=== PATIENT | female | born 1990 | race Caucasian/White ===

== ENCOUNTER → 2017-03-10 | Outpatient (REF) | payer OTHER, MEDICAID | LOC: M LAB REF 17:18 | PROVIDERS: ATTEND Surgery | DX: D23.71 Other benign neoplasm of skin of right lower limb, including hip (principal) ==

== ENCOUNTER → 2017-06-29 | Outpatient (CLI) | payer OTHER ==
--- NOTE | 2017-06-29 15:01 | REP ---
Clinical: Trauma. Crush injury. Technique: AP, lateral, bilateral oblique views left foot. Findings: The osseous structures and joint spaces are intact and normal. There is no evidence for acute fracture or dislocation. Surrounding soft tissues are unremarkable. No subcutaneous emphysema or radiodense foreign body. Impression: No acute fracture or dislocation. Signed by Devan Rivera MD 06/29/2017 02:53 P
== END ==
LOC: M WUC 14:11
PROVIDERS: ATTEND Physician Assistant
DX: S97.82XA Crushing injury of left foot, initial encounter (principal); X58.XXXA Exposure to other specified factors, initial encounter; Y93.9 Activity, unspecified; Y92.9 Unspecified place or not applicable; Y99.8 Other external cause status

== ENCOUNTER 2017-11-03 15:30 | Emergency (ER) | payer OTHER | END 2017-11-03 19:02 | disposition home or self-care (01) | LOC: M ED 15:30 | DX: F07.81 Postconcussional syndrome (principal); S00.83XA Contusion of other part of head, initial encounter; W01.190A Fall on same level from slipping, tripping and stumbling with subsequent striking against furniture, initial encounter; Y92.018 Other place in single-family (private) house as the place of occurrence of the external cause; Z88.2 Allergy status to sulfonamides | CPT/HCPCS: 70450 ==

== ENCOUNTER → 2017-11-19 | Outpatient (REF) | payer OTHER ==
[2017-11-19 22:30] LABS: INFLUENZA A AMPLIFICATION NEGATIVE (NEGATIVE); INFLUENZA B AMPLIFICATION NEGATIVE (NEGATIVE); RSV AMPLIFICATION NEGATIVE (NEGATIVE)
== END ==
LOC: M LAB REF 11:24
DX: J11.1 Influenza due to unidentified influenza virus with other respiratory manifestations (principal)
CPT/HCPCS: 87631

== ENCOUNTER 2019-04-04 22:35 | Emergency (ER) | payer BC, OTHER ==
[~2019-04-04] VITALS: Ht 152.4 cm; Wt 52.3 kg
[2019-04-04] MEDS ORDERED: ACETAMINOPHEN 325 MG TAB PO ONE (23:00)
[2019-04-05] MEDS ORDERED: NS 1,000 ML IV ONE
[2019-04-05 00:20] LABS: BASO % 0.4 % (0.0-1.0); EOS # 0.5 10^3/uL (0.0-0.50); HEMATOCRIT 37.6 % (36.0-47.0); HEMOGLOBIN 12.6 g/dl (12.0-15.5); LYMPH # 0.7 10^3/uL (1.5-6.5); LYMPH % 10.6 % (24.0-44.0); MEAN CORPUSCULAR HEMOGLOBIN 31.4 pg (27.0-33.0); MEAN CORPUSCULAR HGB CONC 33.5 g/dl (32.0-36.5); MEAN CORPUSCULAR VOLUME 93.8 fl (80.0-96.0); MONO # 0.8 10^3/uL (0.0-0.8); MONO % 10.9 % (0.0-5.0); NEUTROPHILS # 4.9 10^3/uL (1.8-7.7); NEUTROPHILS % 70.7 % (36.0-66.0); PLATELET COUNT, AUTOMATED 224 10^3/uL (150-450); RED BLOOD COUNT 4.01 10^6/uL (4.00-5.40); WHITE BLOOD COUNT 6.9 10^3/uL (4.0-10.0)
[2019-04-05 00:30] LABS: BLOOD UREA NITROGEN 7 MG/DL (7-18); CALCIUM LEVEL 8.9 MG/DL (8.5-10.1); CARBON DIOXIDE LEVEL 28 MEQ/L (21-32); CHLORIDE LEVEL 105 MEQ/L (98-107); CREATININE FOR GFR 0.83 MG/DL (0.55-1.30); GLOMERULAR FILTRATION RATE > 60.0 (>60); GLUCOSE, FASTING 109 MG/DL (70-100); POTASSIUM SERUM 3.4 MEQ/L (3.5-5.1); SODIUM LEVEL 139 MEQ/L (136-145)
[2019-04-05 01:08] VITALS: BP 94/60
[2019-04-05] MEDS ORDERED: AUGM875T28 PO (01:43)
[2019-04-05] MEDS ORDERED: AUGMENTIN 875 MG TAB PO ONE (01:45)
--- NOTE | 2019-04-05 07:49 | REP ---
The PA and lateral chest: There are no comparisons. The lung escobedo are clear. The cardiac size is normal. The milton, mediastinum, and skeletal structures are unremarkable. Impression: Negative PA and lateral chest. Electronically Signed by Omar Padron MD 04/05/2019 07:40 A
== END 2019-04-05 01:49 | disposition home or self-care (01) ==
LOC: M ED 22:35
DX: J01.90 Acute sinusitis, unspecified (principal); Z88.1 Allergy status to other antibiotic agents; Z88.2 Allergy status to sulfonamides

== ENCOUNTER → 2019-06-07 | Outpatient (REF) | payer BC ==
[~2019-06-07] MED LIST: AUGM875T28 PO
[2019-06-07 14:05] LABS: APPEARANCE, URINE CLOUDY (CLEAR); BACTERIA, URINE AUTO 1+ (NEGATIVE); BILIRUBIN, URINE AUTO NEGATIVE (NEGATIVE); BLOOD, URINE BLOOD 3+ (NEGATIVE); COLOR, URINE YELLOW (YELLOW); GLUCOSE, URINE (UA) AUTO NEGATIVE (NEGATIVE); KETONE, URINE AUTO NEGATIVE (NEGATIVE); LEUKOCYTE ESTERASE, URINE AUTO 3+ (NEGATIVE); MUCUS, URINE SMALL (NEGATIVE); NITRITE, URINE AUTO NEGATIVE (NEGATIVE); PROTEIN, URINE AUTO 1+ mg/dL (NEGATIVE); RBC, URINE AUTO 84 /HPF (0-3); SPECIFIC GRAVITY URINE AUTO 1.018 (1.002-1.035); SQUAMOUS EPITHELIAL CELL UR AU 10 /HPF (0-6); UROBILINOGEN, URINE AUTO 0.2 mg/dL (0.0-2.0); WBC, URINE AUTO 170 /HPF (0-3)
== END ==
LOC: M LAB REF 13:39
PROVIDERS: ATTEND Physician Assistant Medical
DX: N39.0 Urinary tract infection, site not specified (principal)

== ENCOUNTER → 2019-07-04 | Outpatient (REF) | payer BC ==
[2019-07-04 20:20] LABS: APPEARANCE, URINE CLOUDY (CLEAR); BACTERIA, URINE AUTO NEGATIVE (NEGATIVE); BILIRUBIN, URINE AUTO NEGATIVE (NEGATIVE); BLOOD, URINE BLOOD NEGATIVE (NEGATIVE); COLOR, URINE YELLOW (YELLOW); GLUCOSE, URINE (UA) AUTO NEGATIVE (NEGATIVE); KETONE, URINE AUTO NEGATIVE (NEGATIVE); LEUKOCYTE ESTERASE, URINE AUTO NEGATIVE (NEGATIVE); MUCUS, URINE SMALL (NEGATIVE); NITRITE, URINE AUTO NEGATIVE (NEGATIVE); PROTEIN, URINE AUTO NEGATIVE (NEGATIVE); RBC, URINE AUTO 2 /HPF (0-3); SPECIFIC GRAVITY URINE AUTO 1.019 (1.002-1.035); SQUAMOUS EPITHELIAL CELL UR AU 11 /HPF (0-6); UROBILINOGEN, URINE AUTO 0.2 mg/dL (0.0-2.0); WBC, URINE AUTO 4 /HPF (0-3)
[2019-07-04 22:30] LABS: CHLAMYDIA DNA AMPLIFICATION NEGATIVE (NEGATIVE); GC DNA AMPLIFICATION NEGATIVE (NEGATIVE)
== END ==
LOC: M LAB REF 19:48
PROVIDERS: ATTEND Physician Assistant Medical
DX: Z11.3 Encounter for screening for infections with a predominantly sexual mode of transmission (principal); N39.0 Urinary tract infection, site not specified

== ENCOUNTER → 2020-01-16 | Outpatient (REF) | payer BC ==
[2020-01-16 15:24] LABS: APPEARANCE, URINE CLEAR (CLEAR); BACTERIA, URINE AUTO NEGATIVE (NEGATIVE); BILIRUBIN, URINE AUTO NEGATIVE (NEGATIVE); BLOOD, URINE BLOOD NEGATIVE (NEGATIVE); COLOR, URINE YELLOW (YELLOW); GLUCOSE, URINE (UA) AUTO NEGATIVE (NEGATIVE); KETONE, URINE AUTO NEGATIVE (NEGATIVE); LEUKOCYTE ESTERASE, URINE AUTO 1+ (NEGATIVE); MUCUS, URINE SMALL (NEGATIVE); NITRITE, URINE AUTO NEGATIVE (NEGATIVE); PROTEIN, URINE AUTO NEGATIVE (NEGATIVE); RBC, URINE AUTO 0 /HPF (0-3); SPECIFIC GRAVITY URINE AUTO 1.006 (1.002-1.035); SQUAMOUS EPITHELIAL CELL UR AU 5 /HPF (0-6); UROBILINOGEN, URINE AUTO 0.2 mg/dL (0.0-2.0); WBC, URINE AUTO 4 /HPF (0-3)
== END ==
LOC: M LAB REF 15:07
PROVIDERS: ATTEND Physician Assistant Medical
DX: N39.0 Urinary tract infection, site not specified (principal)

== ENCOUNTER 2020-06-11 18:17 | Emergency (ER) | payer BC ==
[~2020-06-11] VITALS: Ht 152.4 cm; Wt 59.6 kg
[2020-06-11] MEDS ORDERED: PRENTAB29 (18:24)
[2020-06-11 19:50] LABS: APPEARANCE, URINE CLOUDY (CLEAR); BACTERIA, URINE AUTO 1+ (NEGATIVE); BILIRUBIN, URINE AUTO NEGATIVE (NEGATIVE); BLOOD, URINE BLOOD 3+ (NEGATIVE); COLOR, URINE RED (YELLOW); GLUCOSE, URINE (UA) AUTO NEGATIVE (NEGATIVE); KETONE, URINE AUTO 1+ mg/dL (NEGATIVE); LEUKOCYTE ESTERASE, URINE AUTO NEGATIVE (NEGATIVE); MUCUS, URINE SMALL (NEGATIVE); NITRITE, URINE AUTO NEGATIVE (NEGATIVE); PROTEIN, URINE AUTO 1+ mg/dL (NEGATIVE); RBC, URINE AUTO TNTC /HPF (0-3); SPECIFIC GRAVITY URINE AUTO 1.011 (1.002-1.035); SQUAMOUS EPITHELIAL CELL UR AU 15 /HPF (0-6); UROBILINOGEN, URINE AUTO 0.2 mg/dL (0.0-2.0); WBC, URINE AUTO 31 /HPF (0-3)
[2020-06-11 19:51] LABS: BASO % 0.4 % (0.0-1.0); EOS # 0.1 10^3/uL (0.0-0.5); EOS % 0.7 % (0.0-3.0); HEMATOCRIT 36.5 % (36.0-47.0); HEMOGLOBIN 12.4 g/dl (12.0-15.5); LYMPH # 2.2 10^3/uL (1.5-5.0); LYMPH % 22.4 % (24.0-44.0); MEAN CORPUSCULAR VOLUME 88.2 fl (80.0-96.0); MONO # 0.7 10^3/uL (0.0-0.8); MONO % 7.1 % (0.0-5.0); NEUTROPHILS # 6.9 10^3/uL (1.5-8.5); NEUTROPHILS % 69.2 % (36.0-66.0); PLATELET COUNT, AUTOMATED 263 10^3/uL (150-450); RED BLOOD COUNT 4.14 10^6/uL (4.00-5.40); WHITE BLOOD COUNT 9.9 10^3/uL (4.0-10.0)
[2020-06-11] MEDS ORDERED: NS 1,000 ML IV ONE (20:30)
[2020-06-11 20:33] LABS: BLOOD UREA NITROGEN 6 MG/DL (7-18); CALCIUM LEVEL 9.1 MG/DL (8.5-10.1); CARBON DIOXIDE LEVEL 25 MEQ/L (21-32); CHLORIDE LEVEL 106 MEQ/L (98-107); CREATININE FOR GFR 0.57 MG/DL (0.55-1.30); GLOMERULAR FILTRATION RATE > 60.0 (>60); GLUCOSE, FASTING 78 MG/DL (70-100); HCG, SERUM QUANTITATIVE 56651 MIU/ML; POTASSIUM SERUM 3.7 MEQ/L (3.5-5.1); SODIUM LEVEL 139 MEQ/L (136-145)
--- NOTE | 2020-06-11 21:20 | REPVR ---
PROCEDURE INFORMATION: Exam: US First Trimester, Transabdominal Exam date and time: 06/11/2020 9:01 PM Age: 29 years old Clinical indication: Lmp or gestational age (in weeks): 04/24/20; Antepartum complications; Bleeding; ; Additional info: Vag bleeding, 7 wks TECHNIQUE: Imaging protocol: Real-time transabdominal obstetrical ultrasound of the maternal pelvis and a first trimester , less than 14 weeks 0 days, with image documentation. COMPARISON: RENAL US 07/19/2014 6:52 PM FINDINGS: Gestation: pole measures 7.3 mm corresponding to 6 weeks and 4 days gestation. Embryonic/ heart rate: heart rate measures 118 bpm. Placenta: Unremarkable. No subchorionic bleed. Amniotic fluid: Amniotic fluid is normal for gestational age. BIOMETRY: Gestational age (AUA): 6 weeks 4 days. MATERNAL: Uterus: Uterus measures 9.4 x 5.2 x 6.7 cm. Uterus is retroverted. Cervix: Unremarkable. Right adnexa: Right ovary measures 2.8 x 1.6 x 2.4 cm. Left adnexa: Left ovary measures 4.6 x 2.5 x 3.0 cm. Corpus luteal cyst in the left ovary measures 1.7 x 1.4 x 1.2 cm. Intraperitoneal space: Free fluid in the posterior cul de sac . IMPRESSION: Single intrauterine gestation with positive heart rate of 118 bpm. Electronically signed by: Roberto Mercado On 06/11/2020 21:19:51 PM
[2020-06-11 22:10] VITALS: BP 110/55
[2020-06-11] MEDS ORDERED: RHOGAM 300 MCG (1500 IU) INJ (J2790) IM ONE (22:15)
== END 2020-06-11 23:15 | disposition home or self-care (01) ==
LOC: M ED 18:17
DX: O26.859 Spotting complicating pregnancy, unspecified trimester (principal); O36.0910 Maternal care for other rhesus isoimmunization, first trimester, not applicable or unspecified; Z3A.01 Less than 8 weeks gestation of pregnancy; Z79.899 Other long term (current) drug therapy; Z88.2 Allergy status to sulfonamides
CPT/HCPCS: 76801; 76817; 80048; 81001; 84702; 85025; 86850; 86900; 86901; 87086; 93976; 96360; 96372; 99283; J2790

== ENCOUNTER → 2020-08-01 | Outpatient (REF) | payer BC ==
[~2020-08-01] MED LIST changes: +PRENTAB29
[2020-08-01 18:19] LABS: HEMATOCRIT 39.7 % (36.0-47.0); HEMOGLOBIN 13.3 g/dl (12.0-15.5); MEAN CORPUSCULAR HGB CONC 33.5 g/dl (32.0-36.5); MEAN CORPUSCULAR VOLUME 89.6 fl (80.0-96.0); PLATELET COUNT, AUTOMATED 280 10^3/uL (150-450); RED BLOOD COUNT 4.43 10^6/uL (4.00-5.40); WHITE BLOOD COUNT 10.1 10^3/uL (4.0-10.0)
[2020-08-01 19:31] LABS: HEPATITIS C VIRUS ABY INDEX 0.1 INDEX (<0.8); HIV 1&2 SCREEN CENTAUR NEGATIVE (NEGATIVE)
== END ==
LOC: M PLALAB 15:29
PROVIDERS: ATTEND Advanced Practice Midwife
DX: Z34.02 Encounter for supervision of normal first pregnancy, second trimester (principal); Z3A.00 Weeks of gestation of pregnancy not specified

== ENCOUNTER → 2020-08-29 | Outpatient (CLI) | payer OTHER | LOC: M WHC 14:09 | PROVIDERS: ATTEND Obstetrics & Gynecology | DX: Z3A.18 18 weeks gestation of pregnancy (principal); Z53.9 Procedure and treatment not carried out, unspecified reason ==

== ENCOUNTER → 2020-09-03 | Outpatient (CLI) | payer OTHER ==
--- NOTE | 2020-09-04 04:23 | REP ---
INDICATION: ANATOMY COMPARISON: None. TECHNIQUE: Transabdominal obstetrical ultrasound with color Doppler evaluation. FINDINGS: Examination demonstrates a single live intrauterine in transverse (head to maternal right) presentation. motion is identified by technologist. Placenta is noted posterior and grade 0 without evidence for placenta previa or abruption. Amniotic fluid volume is normal. Cervix measures 3.4 cm in length and appears closed.. Gestational age by LMP 18 weeks 6 days with ASHLEY 01/29/2021. Gestational age by current measurements 18 weeks 3 days with ASHLEY 02/01/2021. FHR equals 147 beats per minute. BPD: 4.2 cm 18 weeks 6 days HC: 15.5 cm 18 weeks 3 days AC: 13.4 cm 18 weeks 6 days FL: 2.6 cm 17 weeks 6 days HL: 2.5 cm 18 weeks 0 days HC/AC: 1.16 Estimated weight 239 grams (21stpercentile). Anatomical assessment demonstrates normal structures including cranium, choroid plexus, cavum, cerebellum/posterior fossa, facial features, lungs, diaphragm, stomach, cord insertion/three-vessel cord, kidneys/bladder, spine, and extremities. IMPRESSION: 1. Single live intrauterine in transverse lie demonstrating appropriate estimated weight and growth. Limited evaluation of the heart/cardiac ventricular outflow tracts noted. Remainder of the anatomical assessment is complete and normal. 2. Incidental note is made of marginal insertion of the cord along the posterior aspect of the placenta. <Electronically signed by Devan Rivera > 09/04/20 0410
== END ==
LOC: M WHC 13:27
PROVIDERS: ATTEND Obstetrics & Gynecology
DX: Z34.92 Encounter for supervision of normal pregnancy, unspecified, second trimester (principal); Z3A.18 18 weeks gestation of pregnancy

== ENCOUNTER → 2020-10-01 | Outpatient (CLI) | payer OTHER ==
--- NOTE | 2020-10-01 16:17 | REP ---
INDICATION: F/U ANATOMY - HEART/VOT'S. COMPARISON: 09/03/2020. TECHNIQUE: Real-time sonographic evaluation of the gravid uterus performed. FINDINGS: Estimated gestational age is22 weeks 6 days, EDC 01/29/2021. Today's measurements indicate appropriate growth. Presentation: Transverse head maternal left side. Placenta posterior, grade 0, without evidence of placenta previa. heart rate is recorded at 142 beats per minute. Amniotic fluid is subjectively normal. Closed cervical length is measured at 3.4 cm. Biometry chart: BPD: 56 mm, 22 weeks 6 days, 51st percentile. HC: 203 mm, 22 weeks 3 days, 36th percentile AC: 179 mm, 22 weeks 5 days, 47th percentile Femur length: 38 mm, 22 weeks 1 days, 32nd percentile HC to AC ratio: 1.14, normal range 1.04-1.23. Estimated weight: 510g, 25th percentile. The four-chamber heart and the right ventricular outflow tract are visualized on today's exam and are grossly unremarkable. Other anatomical structures were visualized on the prior exam. IMPRESSION: Viable single intrauterine gestation as above. <Electronically signed by Omar Carty > 10/01/20 [id number]
== END ==
LOC: M WHC 13:19
PROVIDERS: ATTEND Obstetrics & Gynecology
DX: Z34.92 Encounter for supervision of normal pregnancy, unspecified, second trimester (principal); Z3A.22 22 weeks gestation of pregnancy

== ENCOUNTER → 2020-10-31 | Outpatient (REF) | payer OTHER ==
[2020-10-31 16:15] LABS: HEMATOCRIT 35.1 % (36.0-47.0); HEMOGLOBIN 11.2 g/dl (12.0-15.5); MEAN CORPUSCULAR HEMOGLOBIN 30.6 pg (27.0-33.0); MEAN CORPUSCULAR HGB CONC 31.9 g/dl (32.0-36.5); MEAN CORPUSCULAR VOLUME 95.9 fl (80.0-96.0); PLATELET COUNT, AUTOMATED 273 10^3/uL (150-450); RED BLOOD COUNT 3.66 10^6/uL (4.00-5.40); WHITE BLOOD COUNT 11.2 10^3/uL (4.0-10.0)
== END ==
LOC: M PLALAB 12:02
PROVIDERS: ATTEND Obstetrics & Gynecology
DX: Z3A.22 22 weeks gestation of pregnancy (principal)
CPT/HCPCS: 36415; 82950; 85027; 86850; 86900; 86901; J2790

== ENCOUNTER 2020-12-28 13:50 | Inpatient (IN) | payer OTHER ==
[~2020-12-28] VITALS: Ht 152.4 cm; Wt 65.8 kg
[2020-12-28 14:07] VITALS: BP 106/73
[2020-12-28] MEDS ORDERED: PRENTAB9 PO (14:12)
--- NOTE | 2020-12-28 16:03 | REP ---
INDICATION: BPP - DECREASED MOVEMENT. COMPARISON: 10/01/2020. TECHNIQUE: Real-time sonographic evaluation of the gravid uterus performed. FINDINGS: Estimated gestational age is35 weeks 3 days, EDC 01/29/2021. Presentation: Cephalic Placenta posterior, fundal, grade 1-2, without evidence of placenta previa. heart rate is recorded at 145 beats per minute. Amniotic fluid is subjectively normal. LAYO 17.1, normal range 7.8-24.9. Biophysical profile score 2/8. No points for breathing, tone or movement. Two points for amniotic fluid volume. SD ratio umbilical artery 1.84, normal range 1.66-3.56. RI 0.46, normal range 0.46-0.72. IMPRESSION: Biophysical profile score 2/8. No points for breathing, tone or movement. Two points for amniotic fluid volume. <Electronically signed by Omar Carty > 12/28/20 [id number]
[2020-12-28] MEDS ORDERED: LACTATED RINGER'S 1000 ML IV STA (16:54)
[2020-12-28] MEDS ORDERED: BETAMETHASONE SOLUSPAN 6MG/ML 5ML VIAL (J0702 PER 3MG) IM ONE (16:55)
[2020-12-28] MEDS ORDERED: BICITRA 30ML SOLN UDC As Ordered ONE (17:12)
[2020-12-28] MEDS ORDERED: ceFAZolin 2 GM/D5W 50 ML IV BAG (J0690 PER 500MG) As Ordered ONE (17:12)
[2020-12-28] MEDS ORDERED: OXYTOCIN 30 UNITS IN 0.9% NaCl 500ML IV BAG (J2590) As Ordered ONE (17:14)
[2020-12-28] MEDS ORDERED: MORPHINE PRES-FREE INJ 10 MG/10 ML VIAL (J2274) As Ordered ONE (17:14)
[2020-12-28] MEDS ORDERED: ceFAZolin SOD 2 GM in IV 1 EA IV ONE (17:15)
[2020-12-28] MEDS ORDERED: BICITRA 30ML SOLN UDC PO ONE (17:15)
[2020-12-28 17:37] LABS: HEMATOCRIT 39.8 % (36.0-47.0); HEMOGLOBIN 13.2 g/dl (12.0-15.5); MEAN CORPUSCULAR HEMOGLOBIN 31.3 pg (27.0-33.0); MEAN CORPUSCULAR HGB CONC 33.2 g/dl (32.0-36.5); MEAN CORPUSCULAR VOLUME 94.3 fl (80.0-96.0); PLATELET COUNT, AUTOMATED 221 10^3/uL (150-450); RED BLOOD COUNT 4.22 10^6/uL (4.00-5.40); WHITE BLOOD COUNT 13.2 10^3/uL (4.0-10.0)
[2020-12-28] MEDS ORDERED: MIDAZOLAM INJ 2MG/2ML VIAL (J2250 PER 1MG) As Ordered ONE (18:01)
[2020-12-28] MEDS ORDERED: OXYTOCIN INJ 10 UNITS/ML VIAL (J2590) As Ordered ONE (18:07)
[2020-12-28] MEDS ORDERED: fentaNYL 100 MCG/2 ML INJECTION (J3010) As Ordered ONE (18:13)
[2020-12-28] MEDS ORDERED: ONDANSETRON 4MG/2ML VIAL As Ordered ONE (18:15)
[2020-12-28] MEDS ORDERED: dexameTHASONE 4 MG/ML 1ML VIAL (J1100 PER 1MG) As Ordered ONE (18:15)
[2020-12-28 18:18] LABS: CORD GAS ABE A -5.9; CORD GAS HCO3 A 20.4 MEQ/L; CORD GAS O2 SAT A 28.5 %; CORD GAS PCO2 A 43.3 mmHg; CORD GAS PH A 7.292 UNITS; CORD GAS SBC A 18.2 MEQ/L; CORD GAS TCO2 A 21.8 MEQ/L
[2020-12-28 18:21] LABS: CORD GAS ABE V -3.9; CORD GAS HCO3 V 21.6 MEQ/L; CORD GAS O2 SAT V 40.2 %; CORD GAS PCO2 V 41.1 mmHg; CORD GAS PH V 7.339 UNITS; CORD GAS PO2 V 19.8 mmHg; CORD GAS SBC V 19.9 MEQ/L; CORD GAS TCO2 V 22.9 MEQ/L
[2020-12-28] MEDS ORDERED: ONDANSETRON 4MG/2ML VIAL IV PRN ×2 (18:50→19:20)
[2020-12-28] MEDS ORDERED: PERCOCET 5MG/325MG TAB PO PRN (18:50)
[2020-12-28] MEDS ORDERED: RHOGAM 300 MCG (1500 IU) INJ (J2790) IM SCH (18:50)
[2020-12-28] MEDS ORDERED: SIMETHICONE 80MG CHEW TAB PO PRN (18:50)
[2020-12-28] MEDS ORDERED: MEASLES,MUMPS,RUBELLA VACCINE INJ (MMR-II) (90707) SC SCH (18:50)
[2020-12-28] MEDS ORDERED: OXYTOCIN DRIP 30 UNITS in IV 1 EA IV SCH (19:00)
[2020-12-28] MEDS ORDERED: oxyCODONE 5MG TAB PO PRN (19:20)
[2020-12-28] MEDS ORDERED: fentaNYL 100 MCG/2 ML INJECTION (J3010) IV PRN (19:20)
[2020-12-28] MEDS: LR 1,000 ML IV SCH (19:52)
[2020-12-28 20:14] VITALS: BP 120/58
[2020-12-28 20:41] VITALS: BP 117/69
[2020-12-28 21:15] VITALS: BP 128/66
[2020-12-28] MEDS: DOCUSATE SODIUM 100MG CAPSULE PO SCH (21:23)
[2020-12-28] MEDS: PERCOCET 5MG/325MG TAB PO PRN (22:26)
[2020-12-28 22:30] VITALS: BP 122/72
[2020-12-29] MEDS: KETOROLAC 30 MG/ML 1ML VIAL IV SCH ×3 (00:05→12:24)
[2020-12-29 02:00] VITALS: BP 114/80
[2020-12-29] MEDS: LR 1,000 ML IV SCH (02:49)
[2020-12-29 05:54] VITALS: BP 96/52
[2020-12-29 07:47] LABS: HEMATOCRIT 33.4 % (36.0-47.0); MEAN CORPUSCULAR HEMOGLOBIN 30.7 pg (27.0-33.0); MEAN CORPUSCULAR HGB CONC 32.9 g/dl (32.0-36.5); MEAN CORPUSCULAR VOLUME 93.3 fl (80.0-96.0); PLATELET COUNT, AUTOMATED 198 10^3/uL (150-450); RED BLOOD COUNT 3.58 10^6/uL (4.00-5.40); WHITE BLOOD COUNT 18.5 10^3/uL (4.0-10.0)
[2020-12-29] MEDS: PRENATAL VITAMINS CHEWABLE TABLET PO SCH (08:19)
[2020-12-29] MEDS: DOCUSATE SODIUM 100MG CAPSULE PO SCH ×2 (08:19→20:40)
--- NOTE | 2020-12-29 09:24 | RO ---
OPERATIVE NOTE DATE OF OPERATION: 12/28/2020 PREOPERATIVE DIAGNOSIS: 1)Mclaughlin intrauterine at 35 weeks, 3 days with DFM 2)Nonreassuring surveillance, BPP 2/10. POSTOPERATIVE DIAGNOSIS: 1)Mclaughlin intrauterine at 35 weeks, 3 days with DFM 2)Nonreassuring surveillance, BPP 2/10. 3)Presence of meconium PROCEDURE: Primary low transverse section. SURGEON: Coco Polk MD LAUNCHMAN: Jayna Cyr CNM ANESTHESIA: spinal INDICATION FOR OPERATION: Fabienne is a 30-year-old, G2, now P 0-1-1-1, who presented to labor and delivery triage at 35 weeks, 3 days after talking to the on-call nurse and describing lack of movements since the prior evening. She had category 2 heart rate tracing and BPP was performed which was 2/8, giving her a total of 2/10 BPP and so she was counseled for a primary section for her nonreassuring surveillance. She received a dose of betamethasone prior to going to the OR. MATERIAL FORWARDED TO THE LAB FOR EXAMINATION: 1. Placenta. 2. Cord gases: pH arterial 7.292, base excess negative 5.9. pH venous 7.339, base excess negative 3.9. DESCRIPTION OF FINDINGS: Female infant in cephalic presentation, Apgars 2, 6 and 8, weight 5 lb, 12 oz or 2622 gm. Normal appearing uterus, fallopian tubes and ovaries. There was meconium noted on entry into the amniotic sac. INFECTION CLASSIFICATION: 2. ESTIMATED BLOOD LOSS: 500 mL IV FLUIDS: 1400 mL. URINE OUTPUT: 50 mL of clear yellow urine. DESCRIPTION OF PROCEDURE: After obtaining informed consent, the patient was taken to the operating room. She received spinal anesthesia. Bilateral sequential compression devices were placed and a Nation catheter was placed. She received two grams of IV Ancef prophylactically. She was prepped and draped in normal sterile fashion in the dorsal supine position with a left lateral tilt. A timeout was performed to confirm patient name, date of , procedure and indication. The team was in agreement. Spinal anesthesia was found to be adequate using an Allis clamp. A Pfannenstiel skin incision was made with the scalpel and carried through to the underlying layer of fascia and fascia was incised in the midline and the incision was extended laterally with blunt dissection. Superior and inferior aspects of the fascial incision were grasped with Harpreet clamps, elevated and the underlying rectus muscles were dissected off bluntly. The peritoneum was entered digitally. The rectus muscles were in the midline. The peritoneal incision was extended superiorly and inferiorly with good visualization of the bladder. A Mobius retractor was inserted. The lower uterine segment was scored in a transverse fashion with a scalpel and the uterus was entered bluntly and the incision was extended with traction. There was meconium noted. The 's head was elevated to the level of the incision. Fundal pressure was applied. The head was delivered atraumatically in the OA position. Anterior shoulder, posterior shoulder and corpus were delivered without difficulty. The nose and mouth were suctioned with bulb suction. Cord was clamped x2 and cut. was handed off to the awaiting nursing team and Dr. Avitia was soon present. Cord gases were obtained. Placenta was removed with uterine massage and traction on the umbilical cord and the uterus was left in situ, cleared of all clot and debris. The uterine incision was repaired with 0 Vicryl suture in a running locking fashion. A second layer of 0 Monocryl was used to close the hysterotomy incision in imbricating fashion. The uterine incision was inspected and hemostasis was noted after placement of one more [id number] suture. Mandy was applied along the hysterotomy as well. The uterus was hemostatic. Gutters were cleared of clots. The peritoneum was closed using 3-0 Vicryl suture in a running fashion. The rectus muscles were reapproximated with [id number] stitches using 0 Vicryl suture. The fascia was reapproximated with 0 Vicryl suture in a running fashion. The subcutaneous tissue was copiously irrigated. Day's fascia was reapproximated using 3-0 Vicryl suture in a running fashion. Skin edges were reapproximated using three inverted interrupted stitches using 3-0 Vicryl suture followed by a running subcuticular stitch using 4-0 Monocryl suture. The incision was cleaned using a wet lap, dried with a dry lap. Steri-Strips were applied in the usual fashion perpendicular to the Pfannenstiel incision. Optifoam dressing was applied overlying. The vagina was cleared of all blood clot without active bleeding noted. The fundus was firm at U minus 3 cm. All counts were correct x2. The procedure was without complication. The patient tolerated the procedure well. She was taken to the recovery room on labor and delivery in stable condition. MONTRELL
[2020-12-29 10:00] VITALS: BP 116/71
[2020-12-29 14:00] VITALS: BP 101/57
[2020-12-29] MEDS: IBUPROFEN 800 MG TAB PO SCH (20:40)
[2020-12-29 22:00] VITALS: BP 122/77
[2020-12-29] MEDS: PERCOCET 5MG/325MG TAB PO PRN (22:30)
[2020-12-30 02:00] VITALS: BP 101/51
[2020-12-30] MEDS: IBUPROFEN 800 MG TAB PO SCH ×2 (04:56→12:01)
[2020-12-30 06:00] VITALS: BP 113/71
[2020-12-30] MEDS: PRENATAL VITAMINS CHEWABLE TABLET PO SCH (08:41)
[2020-12-30] MEDS: DOCUSATE SODIUM 100MG CAPSULE PO SCH (08:41)
[2020-12-30] MEDS: PERCOCET 5MG/325MG TAB PO PRN (08:46)
[2020-12-30 10:00] VITALS: BP 120/69
[2020-12-30] MEDS ORDERED: DOK1CAP7 PO (11:55)
[2020-12-30] MEDS ORDERED: IBUP80TA PO (11:55)
[2020-12-30] MEDS ORDERED: PERCOCET PO (11:55)
--- NOTE | 2020-12-30 12:15 | IPNPDOC ---
Progress Note Date of Service: Dec 30, 2020 Day#: 2 Progress Note POD 2/PPD 2 SUBJECT: Fabienne is a 30yo [id number] s/p uncomplicated PLTCS the evening of 12/28 for non-reassuring surveillance (BPP 2/10 when presenting for DFM) at 35w3d, doing well /post-op day # 2. She has been ambulating without dizziness/lightheadedness, voiding spontaneously without issue and tolerating regular diet without nausea/vomiting. Baby went to [facility] for higher level of care and patient strongly desires discharge to join baby. She is breast pumping and needs Rx for breast pump. Reports lochia is like a normal period. Pain overall well controlled with pain medication. Denies f/c/CP/SOB. OBJECTIVE: VITAL SIGNS: Normotensive, afebrile. Alert and oriented times three. Abdomen: Fundus firm at U-2. Soft, appropriately tender to palpation without rebound/guarding. Optifoam dressing covers pfannenstiel incision and is clean/dry. Extremities: no pain with palpation of calves Labs: pre-op H/H: 13.2/39.8 post-op H/H: 11/33.4 ASSESSMENT: Fabienne is a 30yo [id number] s/p uncomplicated PLTCS the evening of 3 for non-reassuring surveillance (BPP 2/10 when presenting for DFM) at 35w3d, doing well /post-op day # 2. Vitals wnl, afebrile, hemodynamically stable with no evidence of infection. PLAN: 1. Discharge to home 2. Rx motrin with prn percocet for pain. Colace for bowel regimen. 3. Encouraged continued breast pumping. Rx for breast pump given. 4. Regular diet 5. Discussed return precautions 6. Vaginal rest 6 weeks with no heavy lifting 7. Remove dressing in 1 week and keep the area clean/dry Coco Polk MD VS, I&O, 24H, Cristy Vital Signs/I&O Vital Signs Date Time Temp Pulse Resp B/P (MAP) Pulse Ox O2 Delivery O2 Flow Rate FiO2 12/30/20 10:00 97.3 80 18 120/69 (86) 99 Room Air I&O- Last 24 Hours up to 6 AM 12/30/20 06:00 Output Total 800 ml Balance -800 ml Laboratory Data 24H LABS Laboratory Tests 2 12/30/20 10:40: Lab Scanned Report Mat/Ped HIV Prevention & Care Program Microbiology Microbiology 12/28/20 Group B Streptococcus Screen ([facility]), Received Pending Coco Polk MD Dec 30, 2020 12:15
--- NOTE | 2020-12-30 12:19 | DS.PDOC ---
Discharge Summary General Date of Admission Dec 28, 2020 at 16:29 Date of Discharge Dec 30, 2020 Attending Physician: Coco Polk MD Discharge Summary PROCEDURES PERFORMED DURING STAY: primary low transverse section ADMITTING DIAGNOSES: 1. Decreased movement with non-reassuring surveillance (BPP 2/10) at 35w3d DISCHARGE DIAGNOSES: 1. Decreased movement with non-reassuring surveillance (BPP 2/10) at 35w3d 2. s/p uncomplicated PLTCS COMPLICATIONS/CHIEF COMPLAINT: DFM. HISTORY OF PRESENT ILLNESS/HOSPITAL COURSE: SUBJECT: Fabienne is a 30yo [id number] s/p uncomplicated PLTCS the evening of 12/28 for non-reassuring surveillance (BPP 2/10 when presenting for DFM) at 35w3d, doing well /post-op day # 2. Baby went to [facility] for higher level of care and patient strongly desires discharge to join baby. Patient has had a benign course. At time of discharge, vitals are wnl, she is afebrile, hemodynamically stable with no evidence of infection. DISCHARGE MEDICATIONS: Please see below. ALLERGIES: Please see below. PHYSICAL EXAMINATION ON DISCHARGE: VITAL SIGNS: Normotensive, afebrile. Alert and oriented times three. Abdomen: Fundus firm at U-2. Soft, appropriately tender to palpation without rebound/guarding. Optifoam dressing covers pfannenstiel incision and is clean/dry. Extremities: no pain with palpation of calves LABORATORY DATA: Please see below. pre-op H/H: 13.2/39.8 post-op H/H: 11/33.4 DIET: regular DISCHARGE PLAN/INSTRUCTIONS: 1. Discharge to home 2. Rx motrin with prn percocet for pain. Colace for bowel regimen. 3. Encouraged continued breast pumping. Rx for breast pump given. 4. Regular diet 5. Discussed return precautions 6. Vaginal rest 6 weeks with no heavy lifting 7. Remove dressing in 1 week and keep the area clean/dry DISCHARGE CONDITION: Stable TIME SPENT ON DISCHARGE: Greater than 20 minutes. Vital Signs/I&Os Vital Signs Date Time Temp Pulse Resp B/P (MAP) Pulse Ox O2 Delivery O2 Flow Rate FiO2 12/30/20 10:00 97.3 80 18 120/69 (86) 99 Room Air I&O- Last 24 Hours up to 6 AM 12/30/20 06:00 Output Total 800 ml Balance -800 ml Laboratory Data Labs 24H Laboratory Tests 2 12/30/20 10:40: Lab Scanned Report Mat/Ped HIV Prevention & Care Program Microbiology Microbiology 12/28/20 Group B Streptococcus Screen ([facility]), Received Pending Discharge Medications Scheduled Docusate Sodium (Dok) 100 Mg Capsule, 100 MG PO BID Ibuprofen (Ibuprofen) 800 Mg Tablet, 800 MG PO Q8H No.137/Iron/Folic Acd ( Vitamin Tablet) 1 Each Tablet, 1 TAB PO DAILY, (Reported) Scheduled PRN Oxycodone/Acetaminophen (Oxycodone-Acetaminophen 5-325) 1 Each Tablet, 1 TAB PO Q4H PRN for MILD/MODERATE PAIN (PS 1-7) Allergies Coded Allergies: Sulfa (Sulfonamide Antibiotics) (Verified Allergy, Unknown, 04/04/19) Coco Polk MD Dec 30, 2020 12:19
== END 2020-12-30 12:24 | disposition home or self-care (01) | DRG 540 ==
LOC: M LDO 13:50 → M LDI 16:29 → M OBS 20:19
PROVIDERS: ADMIT Advanced Practice Midwife; ATTEND Obstetrics & Gynecology
PROC: 10D00Z1 Extraction of Products of Conception, Low, Open Approach (ICD-10-PCS; principal; 2020-12-28 18:19)
DX: O76 Abnormality in fetal heart rate and rhythm complicating labor and delivery (principal); O77.0 Labor and delivery complicated by meconium in amniotic fluid; Z3A.35 35 weeks gestation of pregnancy; Z37.0 Single live birth; O36.8130 Decreased fetal movements, third trimester, not applicable or unspecified

== ENCOUNTER → 2021-04-29 | Outpatient (REF) | payer OTHER ==
[~2021-04-29] MED LIST changes: +DOK1CAP4 PO; +IBUP-1114 PO; +IBUP80TA PO; +PERCOCET PO; +PRENTAB9 PO
== END ==
LOC: M SFHCWAGY 17:54
PROVIDERS: ATTEND Obstetrics & Gynecology
DX: N90.89 Other specified noninflammatory disorders of vulva and perineum (principal)

== ENCOUNTER 2021-05-01 23:32 | Emergency (ER) | payer OTHER ==
[~2021-05-01] VITALS: Ht 152.4 cm; Wt 61.3 kg
[~2021-05-01 23:32] MED LIST changes: -DOK1CAP4 PO; +DOK1CAP7 PO; -IBUP-1114 PO
[2021-05-02] MEDS ORDERED: NS 1,000 ML IV ONE (01:15)
[2021-05-02] MEDS ORDERED: ISOVUE-370 76% 100ML VIAL As Ordered ONE (01:43)
[2021-05-02 01:44] LABS: BASO % 0.4 % (0.0-1.0); EOS # 0.1 10^3/uL (0.0-0.5); EOS % 1.6 % (0.0-3.0); HEMATOCRIT 37.8 % (36.0-47.0); HEMOGLOBIN 12.6 g/dl (12.0-15.5); LYMPH # 2.4 10^3/uL (1.5-5.0); LYMPH % 31.7 % (24.0-44.0); MEAN CORPUSCULAR HEMOGLOBIN 30.1 pg (27.0-33.0); MEAN CORPUSCULAR HGB CONC 33.3 g/dl (32.0-36.5); MEAN CORPUSCULAR VOLUME 90.2 fl (80.0-96.0); MONO # 0.7 10^3/uL (0.0-0.8); MONO % 8.7 % (2.0-8.0); NEUTROPHILS # 4.3 10^3/uL (1.5-8.5); NEUTROPHILS % 57.3 % (36.0-66.0); PLATELET COUNT, AUTOMATED 294 10^3/uL (150-450); RED BLOOD COUNT 4.19 10^6/uL (4.00-5.40); WHITE BLOOD COUNT 7.4 10^3/uL (4.0-10.0)
[2021-05-02 02:11] LABS: ALBUMIN 3.9 GM/DL (3.2-5.2); ALT/SGPT 35 U/L (12-78); BILIRUBIN,DIRECT < 0.1 MG/DL (0.0-0.2); BILIRUBIN,TOTAL 0.2 MG/DL (0.2-1.0); LIPASE 70 U/L (73-393)
[2021-05-02] MEDS ORDERED: KETOROLAC 30 MG/ML 1ML VIAL IV ONE (02:35)
[2021-05-02 04:15] VITALS: BP 114/64
--- NOTE | 2021-05-02 04:40 | REPVR ---
PROCEDURE INFORMATION: Exam: CT Abdomen And Pelvis With Contrast Exam date and time: 05/02/2021 1:11 AM Age: 30 years old Clinical indication: Abdominal pain; Flank; Right; Additional info: Rlq/flank pain TECHNIQUE: Imaging protocol: Computed tomography of the abdomen and pelvis with contrast. Radiation optimization: All CT scans at this facility use at least one of these dose optimization techniques: automated exposure control; mA and/or kV adjustment per patient size (includes targeted exams where dose is matched to clinical indication); or iterative reconstruction. Contrast material: ISO; Contrast volume: 100 ml; Contrast route: INTRAVENOUS (IV); COMPARISON: US BPP W/O NON STRESS TEST 12/28/2020 3:12 PM FINDINGS: Lungs: The visualized portions of the lung bases are normal. Liver: There is a 6 mm hypodensity in the liver, too small to characterize. Gallbladder and bile ducts: The gallbladder is contracted, limiting its assessment. No definite stones identified. There is no biliary ductal dilation. Pancreas: The pancreas is normal with no ductal dilation. Spleen: The spleen is normal. Adrenal glands: The adrenal glands are normal. Kidneys and ureters: The kidneys are unremarkable. There are no ureteral stones or hydronephrosis. Stomach and bowel: The small bowel appears unremarkable. There is no dilation or thickening of the colon. Appendix: A normal appendix is identified. Intraperitoneal space: There is a small amount of free fluid in the pelvis. There is no free intraperitoneal air. Vasculature: No aortic aneurysm. Lymph nodes: No lymphadenopathy is seen. Urinary bladder: The bladder is unremarkable. No stones identified. Reproductive: The uterus is retroverted. There is an IUD in the uterus. A small, peripherally enhancing lesion is noted in the right ovary, most consistent with a partially collapsed corpus luteum. Bones/joints: No suspicious osseous lesions. No acute fractures. Soft tissues: There is infiltration of the subcutaneous tissues in the lower anterior abdominal wall, likely related to a prior incision. IMPRESSION: 1. Small amount of free fluid in the pelvis is nonspecific and can be physiologic in a female patient of this age. A partially collapsed corpus luteum is noted in the right ovary and a ruptured ovarian cyst is possible. 2. No evidence of appendicitis. 3. No nephrolithiasis, ureterolithiasis, or hydronephrosis. 4. 6 mm low-attenuation lesion in the liver, too small to characterize. In a low-risk patient, this lesion is most likely to be benign and no further follow-up is recommended. In a high-risk patient, recommend follow-up MRI in 3-6 months (or earlier if warranted by the patient's specific clinical circumstances). Electronically signed by: Cami Allen On 05/02/2021 04:40:16 AM
[2021-05-02] MEDS ORDERED: IBUP-1114 PO (04:47)
--- NOTE | 2021-05-03 14:44 | ED PDOC ---
Post-Departure Follow-Up certified letter regarding radiology report sent Eusebia Wilkins MD May 03, 2021 14:44
== END 2021-05-02 04:59 | disposition home or self-care (01) ==
LOC: M ED 23:33
DX: N83.291 Other ovarian cyst, right side (principal); D64.9 Anemia, unspecified; Z79.899 Other long term (current) drug therapy; Z88.2 Allergy status to sulfonamides
CPT/HCPCS: 74177; 80047; 80076; 81001; 83605; 83690; 84702; 85025; 96361; 96374; 99284; J1885; Q9967

== ENCOUNTER → 2022-05-07 | Outpatient (CLI) | payer OTHER ==
[~2022-05-07] MED LIST changes: +DOK1CAP4 PO; -DOK1CAP7 PO; +IBUP-1114 PO
[2022-05-07 13:53] LABS: BASO % 0.3 % (0.0-1.0); EOS # 0.1 10^3/uL (0.0-0.5); EOS % 1.9 % (0.0-3.0); HEMATOCRIT 39.2 % (36.0-47.0); HEMOGLOBIN 13.1 g/dl (12.0-15.5); LYMPH # 1.6 10^3/uL (1.5-5.0); LYMPH % 25.9 % (24.0-44.0); MEAN CORPUSCULAR HEMOGLOBIN 30.5 pg (27.0-33.0); MEAN CORPUSCULAR HGB CONC 33.4 g/dl (32.0-36.5); MEAN CORPUSCULAR VOLUME 91.2 fl (80.0-96.0); MONO # 0.5 10^3/uL (0.0-0.8); MONO % 8.5 % (2.0-8.0); NEUTROPHILS # 3.9 10^3/uL (1.5-8.5); NEUTROPHILS % 63.2 % (36.0-66.0); PLATELET COUNT, AUTOMATED 279 10^3/uL (150-450); WHITE BLOOD COUNT 6.2 10^3/uL (4.0-10.0)
[2022-05-07 14:20] LABS: ALT/SGPT 23 U/L (12-78); BILIRUBIN,TOTAL 0.2 MG/DL (0.2-1.0); BLOOD UREA NITROGEN 12 MG/DL (7-18); CALCIUM LEVEL 9.3 MG/DL (8.5-10.1); CARBON DIOXIDE LEVEL 30 MEQ/L (21-32); CHLORIDE LEVEL 107 MEQ/L (98-107); CREATININE FOR GFR 0.74 MG/DL (0.55-1.30); GLOMERULAR FILTRATION RATE > 60.0 (>60); GLUCOSE, FASTING 87 MG/DL (70-100); POTASSIUM SERUM 4.5 MEQ/L (3.5-5.1); RHEUMATOID FACTOR QUANT < 10.0 IU/ML (<15.0); SODIUM LEVEL 138 MEQ/L (136-145); TOTAL PROTEIN 7.3 GM/DL (6.4-8.2)
[2022-05-07 14:50] LABS: ERYTHROCYTE SEDIMENTATION RATE 5 mm/hr (0-20)
[2022-05-08 12:07] LABS: ANTINUCLEAR ANTIBODIES DIRECT Negative (Negative)
== END ==
LOC: M PLALAB 11:25
PROVIDERS: ATTEND Nurse Practitioner Family
DX: R21 Rash and other nonspecific skin eruption (principal)

== ENCOUNTER → 2022-06-03 | Outpatient (CLI) | payer OTHER | LOC: M WUC 10:05 | PROVIDERS: ATTEND Physician Assistant | DX: S60.222A Contusion of left hand, initial encounter (principal); S60.212A Contusion of left wrist, initial encounter; X58.XXXA Exposure to other specified factors, initial encounter; Y92.9 Unspecified place or not applicable; Y93.9 Activity, unspecified; Y99.9 Unspecified external cause status ==

== ENCOUNTER → 2023-02-23 | Outpatient (REF) | payer OTHER | LOC: M LAB REF 17:10 | PROVIDERS: ATTEND Nurse Practitioner Family | DX: J02.9 Acute pharyngitis, unspecified (principal) ==

== ENCOUNTER 2023-08-13 21:11 | Emergency (ER) | payer OTHER ==
[~2023-08-13] VITALS: Ht 154.9 cm; Wt 61.4 kg
[2023-08-13 21:13] VITALS: BP 113/76; TEMP 98; O2SAT 98
== END 2023-08-14 01:10 | disposition left against medical advice (07) ==
LOC: M ED 21:11
DX: Z53.21 Procedure and treatment not carried out due to patient leaving prior to being seen by health care provider (principal)

== ENCOUNTER → 2023-11-25 | Outpatient (REF) | payer OTHER, MEDICAID ==
[2023-11-25 22:24] LABS: APPEARANCE, URINE CLEAR (CLEAR); BACTERIA, URINE AUTO NEGATIVE (NEGATIVE); BILIRUBIN, URINE AUTO NEGATIVE (NEGATIVE); BLOOD, URINE BLOOD NEGATIVE (NEGATIVE); COLOR, URINE YELLOW (YELLOW); GLUCOSE, URINE (UA) AUTO NEGATIVE (NEGATIVE); KETONE, URINE AUTO NEGATIVE (NEGATIVE); LEUKOCYTE ESTERASE, URINE AUTO NEGATIVE (NEGATIVE); MUCUS, URINE SMALL (NEGATIVE); NITRITE, URINE AUTO NEGATIVE (NEGATIVE); PROTEIN, URINE AUTO NEGATIVE (NEGATIVE); RBC, URINE AUTO 1 /HPF (0-3); SPECIFIC GRAVITY URINE AUTO 1.015 (1.002-1.035); SQUAMOUS EPITHELIAL CELL UR AU 3 /HPF (0-6); UROBILINOGEN, URINE AUTO 0.2 mg/dL (0.0-2.0); WBC, URINE AUTO 1 /HPF (0-3)
== END ==
LOC: M LAB REF 21:24
PROVIDERS: ATTEND Physician Assistant
DX: N39.0 Urinary tract infection, site not specified (principal)

== ENCOUNTER → 2024-01-05 | Outpatient (CLI) | payer OTHER ==
[2024-01-05 17:58] LABS: HEMOGLOBIN 11.8 g/dl (12.0-15.5); MEAN CORPUSCULAR HEMOGLOBIN 29.6 pg (27.0-33.0); MEAN CORPUSCULAR HGB CONC 32.8 g/dl (32.0-36.5); MEAN CORPUSCULAR VOLUME 90.2 fl (80.0-96.0); PLATELET COUNT, AUTOMATED 279 10^3/uL (150-450); RED BLOOD COUNT 3.99 10^6/uL (4.00-5.40); WHITE BLOOD COUNT 8.1 10^3/uL (4.0-10.0)
[2024-01-05 19:28] LABS: HIV 1&2 SCREEN NEGATIVE (NEGATIVE)
[2024-01-05 19:36] LABS: HEPATITIS C VIRUS ABY INDEX 0.02 INDEX (<0.8)
[2024-01-05 19:58] LABS: GC DNA AMPLIFICATION NEGATIVE (NEGATIVE)
== END ==
LOC: M PLALAB 15:08
PROVIDERS: ATTEND Advanced Practice Midwife
DX: Z34.91 Encounter for supervision of normal pregnancy, unspecified, first trimester (principal)

== ENCOUNTER → 2024-03-21 | Outpatient (CLI) | payer OTHER | LOC: M RAD 08:32 | PROVIDERS: ATTEND Advanced Practice Midwife | DX: O44.42 Low lying placenta NOS or without hemorrhage, second trimester (principal); Z3A.21 21 weeks gestation of pregnancy ==

== ENCOUNTER 2024-04-04 17:27 | Outpatient (CLI) | payer OTHER, MEDICAID ==
[~2024-04-04] VITALS: Ht 154.9 cm; Wt 67.0 kg
[2024-04-04 17:46] VITALS: BP 108/60
[2024-04-04 18:43] LABS: HEMATOCRIT 29.7 % (36.0-47.0); HEMOGLOBIN 10.4 g/dl (12.0-15.5); MEAN CORPUSCULAR HEMOGLOBIN 31.4 pg (27.0-33.0); MEAN CORPUSCULAR VOLUME 89.7 fl (80.0-96.0); PLATELET COUNT, AUTOMATED 245 10^3/uL (150-450); RED BLOOD COUNT 3.31 10^6/uL (4.00-5.40); WHITE BLOOD COUNT 10.5 10^3/uL (4.0-10.0)
[2024-04-04 19:58] VITALS: BP 96/59
[2024-04-04 21:06] VITALS: BP 105/59
== END 2024-04-04 21:00 | disposition home or self-care (01) ==
LOC: M LDO 17:27
PROVIDERS: ATTEND Advanced Practice Midwife
DX: O44.42 Low lying placenta NOS or without hemorrhage, second trimester (principal); O34.219 Maternal care for unspecified type scar from previous cesarean delivery; Z3A.23 23 weeks gestation of pregnancy; Y92.9 Unspecified place or not applicable; Y93.9 Activity, unspecified; Y99.9 Unspecified external cause status
CPT/HCPCS: 36415; 85027; 85460; G0463

== ENCOUNTER → 2024-04-19 | Outpatient (CLI) | payer OTHER ==
[2024-04-19 13:55] LABS: HEMATOCRIT 32.2 % (36.0-47.0); HEMOGLOBIN 10.7 g/dl (12.0-15.5); MEAN CORPUSCULAR HGB CONC 33.2 g/dl (32.0-36.5); MEAN CORPUSCULAR VOLUME 93.3 fl (80.0-96.0); PLATELET COUNT, AUTOMATED 276 10^3/uL (150-450); RED BLOOD COUNT 3.45 10^6/uL (4.00-5.40); WHITE BLOOD COUNT 12.1 10^3/uL (4.0-10.0)
[2024-04-19 13:58] LABS: GLUCOSE CHALLENGE TEST 1 HOUR 122 MG/DL (LESS THAN 140)
== END ==
LOC: M PLALAB 09:14
PROVIDERS: ATTEND Advanced Practice Midwife
DX: Z34.82 Encounter for supervision of other normal pregnancy, second trimester (principal)

== ENCOUNTER → 2024-05-30 | Outpatient (CLI) | payer OTHER | LOC: M WHC 12:23 | PROVIDERS: ATTEND Specialist | DX: O09.213 Supervision of pregnancy with history of pre-term labor, third trimester (principal); Z3A.31 31 weeks gestation of pregnancy ==

== ENCOUNTER → 2024-06-06 | Outpatient (CLI) | payer OTHER ==
[2024-06-06 13:51] LABS: ALBUMIN 2.3 G/DL (3.2-5.2); ALKALINE PHOSPHATASE 188 U/L (46-116); ALT/SGPT < 9 U/L (7.0-40); AST/SGOT 14 U/L (<34); BILIRUBIN,TOTAL 0.4 MG/DL (0.3-1.2); BLOOD UREA NITROGEN < 5 MG/DL (9-23); CALCIUM LEVEL 8.8 MG/DL (8.5-10.1); CARBON DIOXIDE LEVEL 23 MMOL/L (20-31); CHLORIDE LEVEL 108 MMOL/L (98-107); CREATININE FOR GFR 0.47 MG/DL (0.55-1.30); GLOMERULAR FILTRATION RATE > 60.0 (>60); GLUCOSE, FASTING 78 MG/DL (60-100); POTASSIUM SERUM 3.9 MMOL/L (3.5-5.1); SODIUM LEVEL 139 MMOL/L (136-145); TOTAL PROTEIN 5.8 G/DL (5.7-8.2)
== END ==
LOC: M PLALAB 11:32
PROVIDERS: ATTEND Advanced Practice Midwife
DX: O99.713 Diseases of the skin and subcutaneous tissue complicating pregnancy, third trimester (principal); Z3A.00 Weeks of gestation of pregnancy not specified

== ENCOUNTER → 2024-06-17 | Outpatient (CLI) | payer OTHER ==
[~2024-06-17] MED LIST changes: +FLUO40CA PO
== END ==
LOC: M WHC 09:44
PROVIDERS: ATTEND Nurse Practitioner Women's Health
DX: O34.211 Maternal care for low transverse scar from previous cesarean delivery (principal); Z3A.34 34 weeks gestation of pregnancy

== ENCOUNTER → 2024-06-28 | Outpatient (REF) | payer MEDICAID, OTHER ==
[~2024-06-28] MED LIST changes: -FLUO40CA PO
== END ==
LOC: M SFHCWAGY 16:53
PROVIDERS: ATTEND Advanced Practice Midwife
DX: Z34.93 Encounter for supervision of normal pregnancy, unspecified, third trimester (principal)

== ENCOUNTER 2024-07-19 05:09 | Inpatient (IN) | payer OTHER ==
[2024-07-19] VITALS (9 sets, daily range): BP systolic 102–120; BP diastolic 61–80; TEMP 97.8; O2SAT 97–100
[~2024-07-19] VITALS: Ht 152.4 cm; Wt 72.3 kg
[~2024-07-19 05:09] MED LIST changes: +FLUO40CA PO
[2024-07-19] MEDS: LR 1,000 ML IV ONE (06:42)
[2024-07-19 07:01] LABS: HEMATOCRIT 34.8 % (36.0-47.0); HEMOGLOBIN 11.6 g/dl (12.0-15.5); MEAN CORPUSCULAR HEMOGLOBIN 30.9 pg (27.0-33.0); MEAN CORPUSCULAR HGB CONC 33.3 g/dl (32.0-36.5); MEAN CORPUSCULAR VOLUME 92.8 fl (80.0-96.0); PLATELET COUNT, AUTOMATED 176 10^3/uL (150-450); RED BLOOD COUNT 3.75 10^6/uL (4.00-5.40)
[2024-07-19] MEDS ORDERED: PHENYLephrine 500MCG 5ML (100MCG/ML) SYRINGE As Ordered ONE (07:17)
[2024-07-19] MEDS ORDERED: MORPHINE PRES-FREE INJ 10 MG/10 ML VIAL As Ordered ONE (07:17)
[2024-07-19] MEDS ORDERED: OXYTOCIN INJ 10UNITS/ML 1ML VIAL As Ordered ONE (07:17)
[2024-07-19] MEDS ORDERED: KETOROLAC 60MG 2ML VIAL As Ordered ONE (07:17)
[2024-07-19] MEDS ORDERED: ONDANSETRON 4MG 2ML VIAL As Ordered ONE (07:22)
[2024-07-19 07:27] LABS: HEPATITIS C VIRUS ABY INDEX < 0.02 INDEX (<0.8)
[2024-07-19] MEDS: LR 1,000 ML IV SCH ×3 (07:30→10:26)
[2024-07-19] MEDS: BICITRA 30ML SOLN UDC PO ONE (07:30)
[2024-07-19] MEDS: ceFAZolin SOD 2 GM in IV 1 EA IV ONE (07:31)
[2024-07-19] MEDS ORDERED: ePHEDrine SULFATE 25 MG/5 ML(5MG/ML) SYRINGE As Ordered ONE (08:27)
[2024-07-19 08:31] LABS: CORD GAS ABE A -3.3; CORD GAS HCO3 V 21.3 MMOL/L; CORD GAS O2 SAT A 29.9 %; CORD GAS O2 SAT V 75.8 %; CORD GAS PCO2 A 40.6 mmHg; CORD GAS PCO2 V 32.4 mmHg; CORD GAS PH A 7.352 UNITS; CORD GAS PH V 7.435 UNITS; CORD GAS PO2 A 14.5 mmHg; CORD GAS PO2 V 28.2 mmHg; CORD GAS SBC A 20.3 MMOL/L; CORD GAS SBC V 22.3 MMOL/L; CORD GAS TCO2 A 23.3 MMOL/L; CORD GAS TCO2 V 22.3 MMOL/L
[2024-07-19] MEDS ORDERED: OXYTOCIN 30UNITS IN 0.9% NaCl 500ML IV BAG As Ordered ONE (08:43)
[2024-07-19] MEDS: PRENATAL VITAMINS CHEWABLE TABLET PO SCH (09:00)
[2024-07-19] MEDS ORDERED: ONDANSETRON 4MG 2ML VIAL IV PRN ×3 (09:05→09:25)
[2024-07-19] MEDS ORDERED: PERCOCET 5MG/325MG TAB PO PRN (09:05)
[2024-07-19] MEDS: OXYTOCIN DRIP 30 UNITS in IV 1 EA IV SCH (09:18)
[2024-07-19] MEDS: SLF 3 ML SYR IV SCH (09:25)
[2024-07-19] MEDS ORDERED: fentaNYL 100 MCG/2 ML INJECTION IV PRN (09:25)
[2024-07-19] MEDS ORDERED: NALOXONE INJ 0.4MG/1ML VIAL IV PRN ×2 (09:25)
[2024-07-19] MEDS ORDERED: METOCLOPRAMIDE INJ 10MG/2ML VIAL IV PRN (09:25)
[2024-07-19] MEDS ORDERED: NALBUPHINE HCL 10 MG/ML 1ML AMP IV PRN ×2 (09:25)
[2024-07-19] MEDS ORDERED: diphenhydrAMINE 50MG/ML VIAL IV PRN ×2 (09:25)
[2024-07-19] MEDS ORDERED: PROMETHAZINE 25MG/ML 1ML VIAL IV PRN (09:25)
[2024-07-19] MEDS ORDERED: oxyCODONE 5MG TAB PO PRN (09:25)
[2024-07-19] MEDS ORDERED: **NOTE PATIENT COMMENT** MISC XX SCH (09:25)
[2024-07-19] MEDS: KETOROLAC 30 MG/ML 1ML VIAL IV SCH (16:45)
[2024-07-19] MEDS: FLUoxetine 20MG CAP PO SCH (16:46)
[2024-07-20 02:00] VITALS: BP 93/62; O2SAT 97
[2024-07-20 06:00] VITALS: BP 100/60; O2SAT 100
[2024-07-20 06:15] LABS: HEMATOCRIT 29.3 % (36.0-47.0); HEMOGLOBIN 9.9 g/dl (12.0-15.5); MEAN CORPUSCULAR HEMOGLOBIN 31.3 pg (27.0-33.0); MEAN CORPUSCULAR HGB CONC 33.8 g/dl (32.0-36.5); MEAN CORPUSCULAR VOLUME 92.7 fl (80.0-96.0); PLATELET COUNT, AUTOMATED 159 10^3/uL (150-450); RED BLOOD COUNT 3.16 10^6/uL (4.00-5.40); WHITE BLOOD COUNT 9.4 10^3/uL (4.0-10.0)
[2024-07-20] MEDS ORDERED: OXYC1TAB23 PO (07:22)
[2024-07-20] MEDS ORDERED: IBUP80TA PO (07:22)
[2024-07-20] MEDS ORDERED: COLA100C5 PO (07:22)
[2024-07-20] MEDS ORDERED: FLUO40CA PO (07:24)
[2024-07-20 10:00] VITALS: BP 112/71; O2SAT 96
[2024-07-20] MEDS: IBUPROFEN 800 MG TAB PO SCH (11:23)
[2024-07-20] MEDS: SIMETHICONE 80MG CHEW TAB PO PRN (11:23)
[2024-07-20] MEDS: RHO(D) IMMUNE GLOBULIN/MALTOSE 500MCG(2500IU)/2.2ML VIAL (WINRHO) IM SCH (11:25)
[2024-07-20 14:00] VITALS: BP 107/68; O2SAT 100
[2024-07-20 18:00] VITALS: BP 114/73; O2SAT 97
[2024-07-20] MEDS: PERCOCET 5MG/325MG TAB PO PRN (21:06)
[2024-07-20 22:00] VITALS: BP 112/71; O2SAT 98
[2024-07-21 02:00] VITALS: BP 115/73; O2SAT 100
[2024-07-21 06:00] VITALS: BP 104/54; O2SAT 99
[2024-07-21] MEDS: DOCUSATE SODIUM 100MG CAPSULE PO PRN (08:53)
[2024-07-21] MEDS ORDERED: MEASLES,MUMPS,RUBELLA VACCINE INJ (MMR-II) SC.IMMUN ONE (09:00)
== END 2024-07-21 12:15 | disposition home or self-care (01) | DRG 540 ==
LOC: M LDI 05:09 → M OBS 10:12
PROVIDERS: ADMIT Obstetrics & Gynecology; ATTEND Specialist
PROC: 10D00Z1 Extraction of Products of Conception, Low, Open Approach (ICD-10-PCS; principal; 2024-07-19 07:30)
DX: O34.211 Maternal care for low transverse scar from previous cesarean delivery (principal); Z37.0 Single live birth; Z3A.39 39 weeks gestation of pregnancy

== ENCOUNTER 2024-12-24 21:00 | Emergency (ER) | payer OTHER ==
[~2024-12-24] VITALS: Ht 152.4 cm; Wt 69.1 kg
[~2024-12-24 21:00] MED LIST changes: +COLA100C5 PO; +OXYC1TAB23 PO
[2024-12-24 21:05] VITALS: BP 131/81; TEMP 98.8; O2SAT 99
== END 2024-12-24 22:02 | disposition left against medical advice (07) ==
LOC: M ED 21:00
DX: Z53.21 Procedure and treatment not carried out due to patient leaving prior to being seen by health care provider (principal)

== ENCOUNTER 2025-01-05 13:29 | Outpatient (RCR) | payer OTHER | END 2025-01-16 | LOC: M PT 13:29 | PROVIDERS: ATTEND Specialist | DX: M54.9 Dorsalgia, unspecified (principal) ==

== ENCOUNTER 2025-01-17 12:29 | Outpatient (RCR) | payer OTHER | END 2025-02-15 | LOC: M PT 12:29 | PROVIDERS: ATTEND Specialist | DX: M54.9 Dorsalgia, unspecified (principal) ==

== ENCOUNTER 2025-07-19 19:00 | Emergency (ER) | payer OTHER ==
[~2025-07-19] VITALS: Ht 152.4 cm; Wt 74.6 kg
[2025-07-19 20:50] LABS: KETONE, URINE AUTO RFX NEGATIVE (NEGATIVE); LEUKOCYTE ESTERASE UR AUTO RFX NEGATIVE (NEGATIVE); MUCUS, URINE RFX SMALL (NEGATIVE); NITRITE, URINE AUTO RFX NEGATIVE (NEGATIVE); RBC, URINE AUTO RFX 1 /HPF (0-3); SQUAM EPITHELIAL CELL UR AURFX 1 /HPF (0-6); WBC, URINE AUTO RFX 3 /HPF (0-3)
[2025-07-19 21:42] LABS: BASO # 0.0 10^3/uL (0.0-0.2); BASO % 0.5 % (0.0-1.0); EOS # 0.2 10^3/uL (0.0-0.5); EOS % 2.0 % (0.0-3.0); LYMPH # 2.3 10^3/uL (1.5-5.0); LYMPH % 31.1 % (24.0-44.0); MONO # 0.8 10^3/uL (0.0-0.8); MONO % 11.1 % (2.0-8.0); NEUTROPHILS # 4.0 10^3/uL (1.5-8.5); NEUTROPHILS % 55.2 % (36.0-66.0); PLATELET COUNT, AUTOMATED 289 10^3/uL (150-450)
[2025-07-19] MEDS ORDERED: ISOVUE-370 76% 100 ML VIAL As Ordered ONE (22:00)
[2025-07-19 22:15] LABS: ALT/SGPT 15 U/L (7.0-40); AST/SGOT 19 U/L (<34)
[2025-07-19] MEDS ORDERED: MEDR4PAK PO (22:57)
[2025-07-19] MEDS ORDERED: CYCL5TAB4 PO (22:57)
[2025-07-19 23:06] VITALS: BP 122/71; TEMP 97; O2SAT 97
== END 2025-07-19 23:08 | disposition home or self-care (01) ==
LOC: M ED 19:00
DX: R10.9 Unspecified abdominal pain (principal); M54.50 Low back pain, unspecified; Z20.9 Contact with and (suspected) exposure to unspecified communicable disease
CPT/HCPCS: 74177; 80047; 80076; 81001; 83690; 85025; 99284; Q9967